=== PATIENT | male | born 1975 | race Asian ===

== ENCOUNTER 2018-07-22 09:12 | Emergency (ER) | payer OTHER ==
[2018-07-22] MEDS ORDERED: IBUPROFEN 400 MG TAB ONE (09:44)
--- NOTE | 2018-07-22 10:12 | EDPHYS ---
Physician Documentation [facility] Name: Rocco Pandey Age: 43 yrs Sex: Male : 1975 Arrival Date: 07/22/2018 Time: 09:15 Bed 16 Private MD: Hiro Montesinos ED Physician Gen Cardona HPI: 07/22 09:34 This 43 yrs old Male presents to ER via Ambulatory with complaints of Wrist Pain. cp 09:34 The patient or guardian reports pain, swelling, tenderness. The complaints affect the cp right wrist diffusely. Context: resulted from an unknown cause. 09:36 Onset: The symptoms/episode began/occurred gradually. Associated signs and symptoms: cp Pertinent negatives: cyanosis distally, fever, numbness distally. Historical: - Allergies: 09:20 No Known Allergies; hj - Home Meds: 09:20 None [Active]; hj - PMHx: 09:20 None; hj - PSHx: 09:20 None; hj - Immunization history:: Adult Immunizations up to date. - Social history:: Smoking status: Patient/guardian denies using tobacco, Patient uses alcohol. - Ebola Screening: : Patient negative for fever greater than or equal to 101.5 degrees Fahrenheit, and additional compatible Ebola Virus Disease symptoms Patient denies exposure to infectious person Patient denies travel to an Ebola-affected area in the 21 days before illness onset. ROS: 09:36 Eyes: Negative for injury, pain, redness, and discharge. cp 09:36 Constitutional: Negative for body aches, chills, fever, poor PO intake. 09:36 Cardiovascular: Negative for chest pain, palpitations. 09:36 Respiratory: Negative for cough, shortness of breath, wheezing. 09:36 Abdomen/GI: Negative for abdominal pain, nausea, vomiting, and diarrhea. 09:36 MS/extremity: Positive for pain, swelling, tenderness, of the right wrist, Negative for injury or acute deformity, decreased range of motion, paresthesias. 09:36 All other systems are negative. Exam: 09:40 Constitutional: The patient appears in no acute distress, alert, awake, well developed, cp well nourished. 09:40 Head/Face: Normocephalic, atraumatic. cp 09:40 Eyes: Periorbital structures: appear normal, Conjunctiva: normal, no exudate, no injection, Lids and lashes: appear normal, bilaterally. 09:40 ENT: External ear(s): are unremarkable, Nose: is normal, Mouth: is normal, Posterior pharynx: Airway: no evidence of obstruction, patent. 09:40 Chest/axilla: Inspection: normal. 09:40 Cardiovascular: Rate: normal. 09:40 Respiratory: the patient does not display signs of respiratory distress, Respirations: normal, no use of accessory muscles, no retractions, no splinting, no tachypnea. 09:40 Musculoskeletal/extremity: Extremities: grossly normal except: noted in the radial side of right wrist: pain, swelling, tenderness, There is no evidence of decreased ROM, Perfusion: the extremity is normally perfused throughout, Sensation intact. 09:40 Skin: cellulitis, is not appreciated, no rash present. Vital Signs: 09:22 BP 103 / 71; Pulse 63; Resp 18; Temp 97.8(TE); Pulse Ox 98% on R/A; Weight 69.4 kg; hj Height 5 ft. 5 in. (165.10 cm); Pain 6/10; 10:29 BP 110 / 75; Pulse 65; Resp 18; Pulse Ox 100% on R/A; hj 09:22 Body Mass Index 25.46 (69.40 kg, 165.10 cm) MDM: 09:21 Patient medically screened. cp 10:00 Differential diagnosis: closed fracture, tendonitis, sprain, gout. cp 10:10 Data reviewed: vital signs, nurses notes, radiologic studies, plain films, and as a cp result, I will discharge patient. 10:10 Test interpretation: by ED physician or midlevel provider: plain radiologic studies. cp 10:10 Counseling: I had a detailed discussion with the patient and/or guardian regarding: the cp historical points, exam findings, and any diagnostic results supporting the discharge/admit diagnosis, radiology results, the need for outpatient follow up, a orthopedic surgeon, to return to the emergency department if symptoms worsen or persist or if there are any questions or concerns that arise at home. 07/22 09:30 Order name: XRAY Wrist RIGHT 3 view; Complete Time: 17:11 cp 07/22 17:11 Interpretation: Report reviewed. cp 07/22 10:05 Order name: Thumb Spica Splint: right wrist; Complete Time: 10:12 cp Administered Medications: 09:36 Not Given (Patient Refused): Ibuprofen 800 mg PO once hj Disposition: 18:13 Co-signature as Attending Physician, Gen Cardona MD Available for consultation at ps1 all times . Disposition: 07/22/18 10:11 Discharged to Home. Impression: Pain in right wrist. - Condition is Stable. - Discharge Instructions: Wrist Pain. - Prescriptions for Naprosyn 500 mg Oral Tablet - take 1 tablet by ORAL route 2 times per day take with food; 20 tablet. - Work release form, Medication Reconciliation Form, Thank You Letter, Antibiotic Education, Prescription Opioid Use form. - Follow up: Bari Baumann MD; When: 1 week; Reason: pain continues. - Problem is new. - Symptoms have improved. Signatures: Dispatcher [employer] EDEffie Egan RN RN iw Eddie Pérez RN RN hj Triston Hearn PA PA Gen Lee MD MD ps1 Corrections: (The following items were deleted from the chart) 10:25 10:11 07/22/2018 10:11 Discharged to Home. Impression: Pain in right wrist. Condition iw is Stable. Forms are Medication Reconciliation Form, Thank You Letter, Antibiotic Education, Prescription Opioid Use. Follow up: Bari Baumann; When: 1 week; Reason: pain continues. Problem is new. Symptoms have improved. cp
--- NOTE | 2018-07-22 10:12 | ER ---
Nurse's Notes [facility] Name: Rocco Pandey Age: 43 yrs Sex: Male : 1975 Arrival Date: 07/22/2018 Time: 09:15 Bed 16 Private MD: Hiro Montesinos Diagnosis: Pain in right wrist Presentation: 07/22 09:18 Presenting complaint: Patient states: my R wrist is hurting and swollen for days, i am hj not sure if i hurt it or not, denies numbness or tingling; denies taking meds [employer];. Transition of care: patient was not received from another setting of care. Onset of symptoms was July 22, 2018. Risk Assessment: Do you want to hurt yourself or someone else? Patient reports no desire to harm self or others. Initial Sepsis Screen: Does the patient meet any 2 criteria? No. Patient's initial sepsis screen is negative. Does the patient have a suspected source of infection? No. Patient's initial sepsis screen is negative. Care prior to arrival: None. 09:18 Method Of Arrival: Ambulatory 09:18 Acuity: RUCHI 4 hj Triage Assessment: 09:21 General: Appears in no apparent distress. uncomfortable, Behavior is calm, cooperative, hj appropriate for age. Pain: Complains of pain in right wrist Pain currently is 6 out of 10 on a pain scale. Historical: - Allergies: 09:20 No Known Allergies; hj - Home Meds: 09:20 None [Active]; hj - PMHx: 09:20 None; hj - PSHx: 09:20 None; hj - Immunization history:: Adult Immunizations up to date. - Social history:: Smoking status: Patient/guardian denies using tobacco, Patient uses alcohol. - Ebola Screening: : Patient negative for fever greater than or equal to 101.5 degrees Fahrenheit, and additional compatible Ebola Virus Disease symptoms Patient denies exposure to infectious person Patient denies travel to an Ebola-affected area in the 21 days before illness onset. Screenin:21 Abuse screen: Denies threats or abuse. Denies injuries from another. Nutritional hj screening: No deficits noted. Tuberculosis screening: No symptoms or risk factors identified. 09:22 Fall Risk None identified. hj Assessment: 09:20 General: Appears in no apparent distress. uncomfortable, Behavior is calm, cooperative, hj appropriate for age. Pain: Complains of pain in R wrist Pain currently is 6 out of 10 on a pain scale. Neuro: Level of Consciousness is awake, alert, obeys commands, Oriented to person, place, time, situation, Appropriate for age. Cardiovascular: Capillary refill < 3 seconds Patient's skin is warm and dry. Respiratory: Airway is patent Respiratory effort is even, unlabored, Respiratory pattern is regular, symmetrical. GI: No signs and/or symptoms were reported involving the gastrointestinal system. : No signs and/or symptoms were reported regarding the genitourinary system. EENT: No signs and/or symptoms were reported regarding the EENT system. Derm: No signs and/or symptoms reported regarding the dermatologic system. Musculoskeletal: Reports pain in Rwrist. Vital Signs: 09:22 BP 103 / 71; Pulse 63; Resp 18; Temp 97.8(TE); Pulse Ox 98% on R/A; Weight 69.4 kg; hj Height 5 ft. 5 in. (165.10 cm); Pain 6/10; 10:29 BP 110 / 75; Pulse 65; Resp 18; Pulse Ox 100% on R/A; hj 09:22 Body Mass Index 25.46 (69.40 kg, 165.10 cm) hj ED Course: 09:15 Patient arrived in ED. mr 09:16 Hiro Montesinos MD is Private Physician. mr 09:18 Eddie Pérez, RN is Primary Nurse. hj 09:20 Triage completed. hj 09:21 Triston Hearn PA is PHCP. cp 09:21 Gen Cardona MD is Attending Physician. cp 09:21 Arm band placed on left wrist. hj 09:22 Patient has correct armband on for positive identification. Placed in gown. Bed in low hj position. Call light in reach. Side rails up X 1. 09:59 XRAY Wrist RIGHT 3 view In Process Unspecified. EDMS 10:10 Bari Baumann MD is Referral Physician. cp 10:29 No provider procedures requiring assistance completed. Patient did not have IV access hj during this emergency room visit. Administered Medications: 09:36 Not Given (Patient Refused): Ibuprofen 800 mg PO once hj Outcome: 10:11 Discharge ordered by . cp 10:25 Patient left the ED. iw 10:29 Discharged to home ambulatory, with family. hj 10:29 Condition: stable 10:29 Discharge instructions given to patient, family, Instructed on discharge instructions, follow up and referral plans. medication usage, Demonstrated understanding of instructions, follow-up care, medications, Prescriptions given X 1. Signatures: Dispatcher [employer] Carol Ambrosio Effie Cadet RN RN iw Eddie Pérez RN RN hj Page, Corey, IRENE OBNILLA cp Corrections: (The following items were deleted from the chart) 09:24 09:22 Pulse 63bpm; Resp 18bpm; Pulse Ox 98% RA; Temp 97.8F Temporal; 69.4 kg; Height 5 hj ft. 5 in.; BMI: 25.4; Pain 6/10; hj
--- NOTE | 2018-07-22 10:29 | RAD REPORT ---
EXAM DESCRIPTION: RAD - Wrist Right 3 View - 07/22/2018 9:58 am CLINICAL HISTORY: PAIN Pain COMPARISON: No comparisons FINDINGS: No fracture or dislocation of the right wrist seen. Soft tissue swelling is present.
== END 2018-07-22 10:25 | disposition home or self-care (01) ==
LOC: ER 09:12
DX: M25.531 Pain in right wrist (principal); M79.9 Soft tissue disorder, unspecified
CPT/HCPCS: 99283

== ENCOUNTER 2021-07-31 17:15 | Inpatient (IN) | payer BC ==
--- OUTSIDE RECORDS SUMMARY | 2021-07-31 17:20 | XMS REPORT | Continuity of Care Document ---
:1975 Author Organization [facility] t Address [address] [place] [address] Care Team Providers Name Role Phone Unavailable Unavailable Unavailable Problems This patient has no known problems. Allergies, Adverse Reactions, Alerts This patient has no known allergies or adverse reactions. Medications Ordered Filled Start Stop Current Ordering Indication Dosage Frequency Signature Comments Components Source Medication Medication Date Date Medication? Clinician (SIG) Name Name Desmond Logan 2018-0 Yes Renzo [address] [facility] 2[facility]21 [facility] - 00:00: Memoria 00 [facility] Ibuprofen Ibuprofen Yes Renzo [address] [facility] with [facility] - or milk as Memoria needed [facility] Procedures This patient has no known procedures. Encounters Start End Encounter Admission Attending Care Care Encounter Source Date/Time Date/Time Type Type Clinicians Facility Department ID 2018-09-24 2018-09-24 Outpatient Raquel [facility] [id number] [facility] 10:26:00 10:26[facility]00 [facility] Clinics 2018-09-11 2018-09-11 Outpatient Raquel [place] [id number] [facility] 08:00:00 08:[facility]:00 [facility] Clinics 2018-08-28 2018-08-28 Outpatient Raquel Garcíat [id number] [facility] 08:00:00 08:00:00 [facility] Results This patient has no known results.
--- NOTE | 2021-07-31 18:59 | RAD REPORT ---
EXAM DESCRIPTION: Ribs Right - 07/31/2021 6:14 pm CLINICAL HISTORY: PAIN, pain persists following blunt force trauma to the ribs 2 days earlier COMPARISON: No comparisonsNo comparisonsNone. FINDINGS: No displaced rib fracture is evident. No non-displaced rib fracture suspected. No aggressive rib lesion. No underlying pneumothorax, effusion, infiltrate or pulmonary contusion. IMPRESSION: Negative right rib series.
[2021-07-31] MEDS ORDERED: KETOROLAC 30 MG/ML INJ ONE (19:54)
[2021-07-31] MEDS ORDERED: NA CHLORIDE 0.9% 1,000 ML ONE (19:54)
[2021-07-31 20:18] LABS: Urine Blood Trace-intact (Negative); Urine Glucose Negative (Negative); Urine Protein Negative (Negative); Urine Specific Gravity >=1.030 (1.005-1.030)
[2021-07-31] MEDS ORDERED: HYDROCODONE/APAP 7.5/325 MG TAB ONE (20:23)
[2021-07-31 20:30] LABS: Absolute Lymphocytes (CBC) 3.3 K/uL (0.7-4.9); Hematocrit 42.8 % (39.6-49.0); Lymphocytes % 30.6 % (15.3-44.8)
[2021-07-31 20:38] LABS: Albumin 3.5 g/dL (3.4-5.0); BUN Blood Urea Nitrogen 15 mg/dL (7-18); Bicarbonate 25 mmol/L (21-32); Glucose Level 90 mg/dL (74-106); Potassium 3.8 mmol/L (3.5-5.1); Sodium Level 136 mmol/L (136-145)
[2021-07-31 20:49] LABS: ALT/SGPT 35 U/L (12-78); AST/SGOT 19 U/L (15-37); Alkaline Phosphatase 74 U/L (45-117); Bilirubin Total 0.8 mg/dL (0.2-1.0); Protein, Total 7.6 g/dL (6.4-8.2)
--- NOTE | 2021-07-31 21:26 | RAD REPORT ---
EXAM DESCRIPTION: CT - Chest For Pe Angio - 07/31/2021 9:14 pm CLINICAL HISTORY: CHEST PAIN COMPARISON: No comparisons TECHNIQUE: Dynamically enhanced 3 mm thick images of the chest were obtained during administration o f approximately 150mL Isovue 370 IV contrast. Coronal and oblique MIP reconstruction images were gene rated and reviewed. Exam utilizes a protocol to evaluate the pulmonary arterial tree. All CT scans are performed using dose optimization technique as appropriate and may include automated exposure control or mA/KV adjustment according to patient size. FINDINGS: No saddle embolus or large central pulmonary emboli seen. There is pulmonary embolism pres ent at the branch point between left lower lobe and left upper lobe lingula branches. Pulmonary embol us continues into segmental branches. Small segmental branch pulmonary embolism present in the superi or aspect of the left upper lobe. A few additional far peripheral subsegmental branch pulmonary embol i are seen scattered in the lung staples. The aorta as imaged shows no acute or suspicious finding. No pericardial thickening or effusion. Patchy alveolar opacification present in the subpleural posterior gutter on the right. Patient does h ave some pulmonary embolic disease in this region but these airspace opacities are not definitive for pulmonary hemorrhage. Atelectasis or infiltrate would be possible. Trace right pleural effusion is p resent. No left pleural effusion or pneumothorax. No mediastinal or hilar suspicious masses. No chest wall masses or abnormal axillary lymphadenopathy. IMPRESSION: Multiple segmental and subsegmental branch pulmonary emboli are present as detailed. Patchy airspace opacities in the posterior right lower lobe are present. There are some pulmonary emb alison in this region but airspace findings are non definitive for pulmonary hemorrhage versus atelectas is or infiltrate.
--- NOTE | 2021-07-31 21:27 | RAD REPORT ---
EXAM DESCRIPTION: CT - Abdomen Pelvis W Contrast - 07/31/2021 9:14 pm CLINICAL HISTORY: ABD PAIN COMPARISON: No comparisons TECHNIQUE: Biphasic, helical CT imaging of the abdomen and pelvis was performed following 100 ml non -ionic IV contrast. No oral contrast administered. All CT scans are performed using dose optimization technique as appropriate and may include automated exposure control or mA/KV adjustment according to patient size. FINDINGS: Lung base findings are detailed on the separate CT chest report. The liver, spleen, and pancreas show no suspicious findings. Gallbladder and biliary tree are also wi thout suspicious finding. Symmetric renal function is seen with no hydronephrosis or suspicious renal mass. No pyelonephritis o r acute parenchymal process. No bladder abnormalities. No adrenal abnormalities. No dilated bowel loops or bowel wall thickening. No free air, free fluid or inflammatory stranding. No hernia, mass or bulky lymphadenopathy. No suspicious bony findings. IMPRESSION: Contrast enhanced CT abdomen and pelvis showing no significant or suspicious finding.
--- NOTE | 2021-07-31 22:24 | EDPHYS ---
Physician Documentation [facility] Name: Rocco Pandey Age: 46 yrs Sex: Male : 1975 Arrival Date: 07/31/2021 Time: 17:19 Bed 7 Private MD: Jose Juan Melissa C ED Physician Triston Keller HPI: 07/31 19:43 This 46 yrs old Male presents to ER via Ambulatory with complaints of Flank Pain. bill 19:43 The patient complains of pain in the right subscapular area, right mid back and right bill low back. The pain does not radiate. Onset: The symptoms/episode began/occurred 2 day(s) ago. Modifying factors: The symptoms are alleviated by remaining still, the symptoms are aggravated by movement, deep breaths. Associated signs and symptoms: The patient has no apparent associated signs or symptoms. Severity of pain: At its worst the pain was mild in the emergency department the pain is unchanged. The patient has not experienced similar symptoms in the past. Historical: - Allergies: 17:40 No Known Allergies; jd3 - Home Meds: 17:40 None [Active]; jd3 - PMHx: 17:40 None; jd3 - PSHx: 17:40 None; jd3 - Immunization history:: Adult Immunizations up to date, Client reports receiving the 2nd dose of the Covid vaccine, Flu vaccine is up to date. - Social history:: Smoking status: Patient denies any tobacco usage or history of. - Family history:: not pertinent. ROS: 19:46 Constitutional: Negative for fever, chills, and weight loss, Eyes: Negative for injury, bill pain, redness, and discharge, ENT: Negative for injury, pain, and discharge, Neck: Negative for injury, pain, and swelling, Cardiovascular: Negative for chest pain, palpitations, and edema, Abdomen/GI: Negative for abdominal pain, nausea, vomiting, diarrhea, and constipation, Back: Negative for injury and pain, : Negative for injury, bleeding, discharge, and swelling, MS/Extremity: Negative for injury and deformity, Skin: Negative for injury, rash, and discoloration, Neuro: Negative for headache, weakness, numbness, tingling, and seizure, Psych: Negative for depression, anxiety, suicide ideation, homicidal ideation, and hallucinations, Allergy/Immunology: Negative for hives, rash, and allergies, Endocrine: Negative for neck swelling, polydipsia, polyuria, polyphagia, and marked weight changes, Hematologic/Lymphatic: Negative for swollen nodes, abnormal bleeding, and unusual bruising. 19:46 Respiratory: Positive for pleurisy, of the right lateral anterior chest and right lateral posterior chest. Exam: 19:43 Constitutional: This is a well developed, well nourished patient who is awake, alert, bill and in no acute distress. Head/Face: Normocephalic, atraumatic. Eyes: Pupils equal round and reactive to light, extra-ocular motions intact. Lids and lashes normal. Conjunctiva and sclera are non-icteric and not injected. Cornea within normal limits. Periorbital areas with no swelling, redness, or edema. ENT: Nares patent. No nasal discharge, no septal abnormalities noted. Tympanic membranes are normal and external auditory canals are clear. Oropharynx with no redness, swelling, or masses, exudates, or evidence of obstruction, uvula midline. Mucous membranes moist. Neck: Trachea midline, no thyromegaly or masses palpated, and no cervical lymphadenopathy. Supple, full range of motion without nuchal rigidity, or vertebral point tenderness. No Meningismus. Cardiovascular: Regular rate and rhythm with a normal S1 and S2. No gallops, murmurs, or rubs. Normal PMI, no JVD. No pulse deficits. Respiratory: Lungs have equal breath sounds bilaterally, clear to auscultation and percussion. No rales, rhonchi or wheezes noted. No increased work of breathing, no retractions or nasal flaring. Abdomen/GI: Soft, non-tender, with normal bowel sounds. No distension or tympany. No guarding or rebound. No evidence of tenderness throughout. Back: No spinal tenderness. No costovertebral tenderness. Full range of motion. Male : Normal genitalia with no discharge or lesions. Skin: Warm, dry with normal turgor. Normal color with no rashes, no lesions, and no evidence of cellulitis. MS/ Extremity: Pulses equal, no cyanosis. Neurovascular intact. Full, normal range of motion. Neuro: Awake and alert, GCS 15, oriented to person, place, time, and situation. Cranial nerves II-XII grossly intact. Motor strength 5/5 in all extremities. Sensory grossly intact. Cerebellar exam normal. Normal gait. Psych: Awake, alert, with orientation to person, place and time. Behavior, mood, and affect are within normal limits. 19:43 Chest/axilla: Inspection: normal, no acute changes, Palpation: is normal, no acute changes, Lymph nodes: lymphadenopathy is not appreciated, supraclavicular nodes, non-palpable. 19:43 Abdomen/GI: Exam negative for acute changes. 08/01 02:32 ECG was reviewed by the Attending Physician. [facility] Vital Signs: 07/31 17:40 BP 105 / 79; Pulse 80; Resp 19 S; Temp 98.5(TE); Pulse Ox 97% on R/A; Weight 68.04 kg jd3 (R); Height 5 ft. 5 in. (165.10 cm) (R); Pain 3/10; 19:26 BP 117 / 98; Pulse 85; Resp 16; Temp 98.4; Pulse Ox 100% on R/A; st1 20:31 BP 124 / 82; Pulse 74; Resp 16; Pulse Ox 98% on R/A; Pain 3/10; st1 17:40 Body Mass Index 24.96 (68.04 kg, 165.10 cm) jd3 [place] Coma Score: 19:26 Eye Response: spontaneous(4). Verbal Response: oriented(5). Motor Response: obeys st1 commands(6). Total: 15. MDM: 19:16 Patient medically screened. [facility] 19:47 Differential diagnosis: pe, laceration liver, ptx. Data reviewed: vital signs, nurses [facility] notes, lab test result(s), radiologic studies, CT scan, plain films. 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 Test interpretation: by ED physician or midlevel provider: plain radiologic studies. Counseling: I had a detailed discussion with the patient and/or guardian regarding: the historical points, exam findings, and any diagnostic results supporting the discharge/admit diagnosis, lab results, radiology results, the need for outpatient follow up, for definitive care, a general surgeon. 07/31 19:43 Order name: CBC with Diff; Complete Time: 23:12 [facility] 07/31 19:43 Order name: Comprehensive Metabolic Panel; Complete Time: 23:12 [facility] 07/31 20:18 Order name: Urine Dipstick-Ancillary; Complete Time: 20:38 [facility] 07/31 21:36 Order name: PT-INR [facility] 07/31 21:36 Order name: COVID-19/FLU A+B/RSV (Document "Date of Onset" if Symptomatic) [facility] 07/31 22:10 Order name: Anti-Thrombin III Activity [facility] 07/31 17:47 Order name: Ribs Right XRAY; Complete Time: 20:38 jd3 07/31 22:10 Order name: Factor V Leiden Mutation [facility] 07/31 22:10 Order name: Homocysteine [facility] 07/31 22:10 Order name: Protein C Activity, Functional [facility] 07/31 22:10 Order name: PROTHROMBIN GENE ANALYSIS (F2) [facility] 07/31 22:11 Order name: Protein S Activity, Functional [facility] 08/01 04:47 Order name: CBC with Automated Diff [facility] 08/01 05:01 Order name: Basic Metabolic Panel [facility] 07/31 19:43 Order name: Urine Dipstick-Ancillary (obtain specimen); Complete Time: 20:45 [facility] 07/31 19:43 Order name: CT Chest For PE Angio; Complete Time: 23:12 [facility] 07/31 19:43 Order name: CT Abd/Pelvis - IV Contrast Only; Complete Time: 23:12 [facility] 07/31 19:52 Order name: INCENTIVE SPIROMETRY [facility] 07/31 21:36 Order name: EKG; Complete Time: 21:37 [facility] 07/31 21:36 Order name: EKG - Nurse/Tech; Complete Time: 02:30 [facility] 07/31 21:36 Order name: US Extremity Venous W Compression Markus [facility] 07/31 22:30 Order name: CONS Physician Consult [facility] EC/25 02:32 Rate is 75 beats/min. Rhythm is regular. QRS [place] is Normal. [place] interval is normal. QRS bill interval is normal. QT interval is normal. No Q waves. T waves are Normal. No ST changes noted. Clinical impression: NSR w/ Non-specific ST/T Changes and No evidence of ischemia. Interpreted by me. Reviewed by me. Administered Medications: 07/31 20:12 Drug: NS 0.9% 1000 ml Route: IV; Rate: 1 bolus; Site: left antecubital; st1 20:12 Drug: Ketorolac 30 mg Route: IVP; Site: left antecubital; st1 20:24 Drug: [place] (HYDROcodone-acetaminophen) (7.5 mg-325 mg) 1 tabs Route: PO; st1 22:30 Drug: Pepcid (famotidine) 20 mg Route: IVP; Site: left antecubital; st1 08/01 01:44 Not Given (documente in [facility] see MAR): Heparin (DVT/PE Drip) 18 units/kg/hr - st1 (HEParin 30744 units, D5W 500 ml) IV at per protocol Per protocol; Max initial rate 1800 units/hr 01:45 Not Given (Documented in [facility],see MAR ): Heparin (DVT/PE- Bolus per protocol) - st1 HEParin 80 units/kg IVP once; Max 8,000 units Disposition Summary: 07/31/21 22:23 Hospitalization Ordered Hospitalization Status: Inpatient Admission bill Provider: Jose Juan Melissa cha [facility] Condition: Fair bill Problem: new bill Symptoms: have improved bill Bed/Room Type: Standard [facility] Room Assignment: 218(08/01/21 03:09) cg Diagnosis - Dyspnea bill - Pleurisy bill - Pulmonary embolism without acute cor pulmonale bill - Pleural effusion, not elsewhere classified bill Discharge Instructions: - Discharge Summary Sheet bill - Contusion bill - Pleurisy bill - How to Use an Incentive Spirometer bill - Contusion, [id number] bill - Pleurisy, [id number] bill Forms: - Medication Reconciliation Form bill - SBAR form [facility] Prescriptions: - Diclofenac Sodium 75 mg Oral tablet,delayed release (DR/EC) - take 1 tablet by ORAL route 2 times per day; 20 tablet; Refills: 0, Product bill Selection Permitted - Tylenol-Codeine #3 300 mg-30 mg Oral - take 2 tablet by ORAL route every 6 hours; 20 tablet; Refills: 0, Product bill Selection Permitted Signatures: Dispatcher [employer] Triston Locke MD MD cha Garcia, Cindy RN RN Huan Keith RN RN jHannah Mireles RN RN st1 Corrections: (The following items were deleted from the chart) 03:09 07/31 22:23 bill cg
--- NOTE | 2021-07-31 22:24 | ER ---
Nurse's Notes [facility] Name: Rocco Pandey Age: 46 yrs Sex: Male : 1975 Arrival Date: 07/31/2021 Time: 17:19 Bed 7 Private MD: Jose Juan Melissa C Diagnosis: Dyspnea;Pleurisy;Pulmonary embolism without acute cor pulmonale;Pleural effusion, not elsewhere classified Presentation: 07/31 17:37 Chief complaint: Spouse and/or significant other states: "He was horse playing with our jd3 son and his knee hit his side on his right side and hit right flank is really hurting causing some pain with breathing. pain that goes from my ribs up to my shoulder form my stomach.". Coronavirus screen: At this time, the client does not indicate any symptoms associated with coronavirus-19. Ebola Screen: No symptoms or risks identified at this time. Initial Sepsis Screen: Does the patient meet any 2 criteria? No. Patient's initial sepsis screen is negative. Does the patient have a suspected source of infection? No. Patient's initial sepsis screen is negative. Risk Assessment: Do you want to hurt yourself or someone else? Patient reports no desire to harm self or others. Note Advil X 2 taken prior to coming to ER. Onset of symptoms was July 31, 2021. 17:37 Method Of Arrival: Ambulatory [facility] 17:37 Acuity: RUCHI 4 jd3 Triage Assessment: 18:54 General: Appears in no apparent distress. uncomfortable, Behavior is calm, cooperative, bp appropriate for age. Pain: Complains of pain in right flank. EENT: No deficits noted. Neuro: No deficits noted. Cardiovascular: No deficits noted. Respiratory: No deficits noted. GI: No signs and/or symptoms were reported involving the gastrointestinal system. : No signs and/or symptoms were reported regarding the genitourinary system. Derm: No deficits noted. Musculoskeletal: No deficits noted. Historical: - Allergies: 17:40 No Known Allergies; jd3 - Home Meds: 17:40 None [Active]; jd3 - PMHx: 17:40 None; jd3 - PSHx: 17:40 None; jd3 - Immunization history:: Adult Immunizations up to date, Client reports receiving the 2nd dose of the Covid vaccine, Flu vaccine is up to date. - Social history:: Smoking status: Patient denies any tobacco usage or history of. - Family history:: not pertinent. Screenin:55 Abuse screen: Denies threats or abuse. Denies injuries from another. Nutritional bp screening: No deficits noted. Tuberculosis screening: No symptoms or risk factors identified. Fall Risk None identified. Assessment: 18:55 General: SEE TRIAGE NOTE. bp 20:29 General: the patient was provided a incentive spirometer and was educated on how to use st1 it. . Vital Signs: 17:40 BP 105 / 79; Pulse 80; Resp 19 S; Temp 98.5(TE); Pulse Ox 97% on R/A; Weight 68.04 kg jd3 (R); Height 5 ft. 5 in. (165.10 cm) (R); Pain 3/10; 19:26 BP 117 / 98; Pulse 85; Resp 16; Temp 98.4; Pulse Ox 100% on R/A; st1 20:31 BP 124 / 82; Pulse 74; Resp 16; Pulse Ox 98% on R/A; Pain 3/10; st1 17:40 Body Mass Index 24.96 (68.04 kg, 165.10 cm) jd3 [place] Coma Score: 19:26 Eye Response: spontaneous(4). Verbal Response: oriented(5). Motor Response: obeys st1 commands(6). Total: 15. ED Course: 17:19 Patient arrived in ED. mr 17:19 Jose Juan Melissa MD is Private Physician. mr 17:39 Triage completed. jd3 17:40 Arm band placed on. jd3 18:14 Ribs Right XRAY In Process Unspecified. EDMS 18:54 Mani Ny, RN is Primary Nurse. bp 18:55 Patient has correct armband on for positive identification. Bed in low position. Call bp light in reach. Side rails up X2. Adult w/ patient. 19:16 Triston Keller MD is Attending Physician. bill 20:12 Comprehensive Metabolic Panel Sent. st1 20:12 CBC with Diff Sent. st1 20:24 INCENTIVE SPIROMETRY Sent. st1 20:29 Inserted saline lock: 20 gauge in left antecubital area, using aseptic technique. st1 Missed attempt(s): 20 gauge in right forearm. Bleeding controlled, band aid applied, catheter tip intact. 21:13 CT Chest For PE Angio In Process Unspecified. EDMS 21:13 CT Abd/Pelvis - IV Contrast Only In Process Unspecified. EDMS 22:22 Jose Juan Melissa MD is Hospitalizing Provider. [facility] 22:23 US Extremity Venous W Compression Markus In Process Unspecified. EDNV 08/01 04:07 No provider procedures requiring assistance completed. st1 04:08 Patient admitted, IV remains in place. st1 Administered Medications: 07/31 20:12 Drug: NS 0.9% 1000 ml Route: IV; Rate: 1 bolus; Site: left antecubital; st1 20:12 Drug: Ketorolac 30 mg Route: IVP; Site: left antecubital; st1 20:24 Drug: [place] (HYDROcodone-acetaminophen) (7.5 mg-325 mg) 1 tabs Route: PO; st1 22:30 Drug: Pepcid (famotidine) 20 mg Route: IVP; Site: left antecubital; st1 08/01 01:44 Not Given (documente in [facility] see MAR): Heparin (DVT/PE Drip) 18 units/kg/hr - st1 (HEParin 09816 units, D5W 500 ml) IV at per protocol Per protocol; Max initial rate 1800 units/hr 01:45 Not Given (Documented in [facility],see MAR ): Heparin (DVT/PE- Bolus per protocol) - st1 HEParin 80 units/kg IVP once; Max 8,000 units Outcome: 07/31 22:23 Decision to Hospitalize by Provider. [facility] 08/01 04:07 Admitted to Med/surg accompanied by nurse, via wheelchair, room 218, with chart, Report st1 called to TIMOTHY Pavon 04:08 Condition: stable st1 04:08 Instructed on the need for admit. 05:07 Patient left the ED. st1 Signatures: Dispatcher [employer] EDMS Triston Keller MD MD cha Rivera, Huan Fan RN RN jd3 Peltier, Brian, RN RN bp Tingle, Shellie, RN RN st1
[2021-07-31] MEDS ORDERED: FAMOTIDINE 20 MG/2 ML VIAL IV ONE (22:29)
[2021-07-31 23:12] LABS: SARS-COV-2 RT PCR NEGATIVE (NEGATIVE)
[2021-07-31 23:45] LABS: Protime INR 1.16
[2021-07-31] MEDS ORDERED: ACETAMINOPHEN 325 MG TABLET PO PRN (23:57)
[2021-07-31] MEDS ORDERED: HEPARIN/D5W 25,000 UNIT/500 ML BAG IV SCH (23:57)
[2021-07-31] MEDS ORDERED: ONDANSETRON 4 MG/2 ML VIAL IV PRN (23:57)
[2021-07-31] MEDS ORDERED: MORPHINE 4 MG/ML SYR IV PRN (23:57)
[2021-08-01 00:04] VITALS: BMI 24.9
[2021-08-01] MEDS ORDERED: HEPARIN 5000 UNIT/ML 1 ML VIAL ONE (00:30)
[2021-08-01] MEDS ORDERED: HEPARIN/D5W 25,000 UNIT/500 ML BAG IV ONE (00:31)
[2021-08-01 04:46] LABS: Absolute Lymphocytes (CBC) 2.1 K/uL (0.7-4.9); Hematocrit 40.1 % (39.6-49.0); Lymphocytes % 21.5 % (15.3-44.8); MPV 7.7 fL (7.6-11.3); RBC Red Blood Cell Count 4.43 M/uL (4.33-5.43)
[2021-08-01 05:00] LABS: BUN Blood Urea Nitrogen 12 mg/dL (7-18); Bicarbonate 25 mmol/L (21-32); Glucose Level 102 mg/dL (74-106); Potassium 3.7 mmol/L (3.5-5.1); Sodium Level 138 mmol/L (136-145)
[2021-08-01] MEDS ORDERED: HYDROMORPHONE HCL 1 MG/ML INJ IV PRN (05:48)
[2021-08-01] MEDS ORDERED: ONDANSETRON 4 MG/2 ML VIAL IV PRN (05:49)
--- NOTE | 2021-08-01 07:08 | RAD REPORT ---
EXAM DESCRIPTION: US - Extrem Venous W Compress Markus - 07/31/2021 10:23 pm CLINICAL HISTORY: PAINboth legs COMPARISON: None. TECHNIQUE: Real-time sonographic evaluation of the bilateral lower extremity common femoral, superfi cial femoral, popliteal and posterior tibial veins was performed. FINDINGS: Normal compressibility, flow augmentation, phasic flow and spontaneous flow are identified in the left and right lower extremity common femoral, superficial femoral, popliteal and posterior t ibial veins. No intraluminal filling defects seen. IMPRESSION: No DVT in either lower extremity.
--- NOTE | 2021-08-01 08:22 | EKG ---
Test Date: 2021-08-01 Test Time: 02:25:01 Diesel Engine I Pipe Fitter: FABRICE MEASUREMENT RESULTS: Intervals: Rate: 75 SD: 150 QRSD: 98 QT: 386 QTc: 431 [place]: P: 48 SD: 150 QRS: 43 T: -1 INTERPRETIVE STATEMENTS: Normal sinus rhythm Inferior infarct, age undetermined Cannot rule out Anterior infarct, age undetermined Abnormal ECG No previous ECG available for comparison Electronically Signed On 08-01-21 08:22:16 MARKETING OPERATIONS ASSOCIATE by Julian Quiles
[2021-08-01] MEDS: ENOXAPARIN 80 MG/0.8 ML SQ SCH ×2 (08:38→20:19)
--- NOTE | 2021-08-01 08:47 | P.CNS ---
Date of Consult: 08/01/21 Reason for Consult: Pulmonary embolism right-sided chest pain Chief Complaint: Right-sided chest pain History of Present Illness: Patient is 46 years of age apparently was playing with his son developed sudden onset of right-sided chest pain admitted to the hospital and was found to have bilateral pulmonary emboli still complaining of significant right-sided chest pain no prior medical history Allergies No Known Allergies Allergy (Unverified 07/31/21 22:06) Home Medications: NK [No Home Meds] 08/01/21 - Past Medical/Surgical History Past Surgical History: Patient denies surgical history Review of Systems 10-point ROS is otherwise unremarkable Physical Examination Temp Pulse Resp BP Pulse Ox 99.4 F 92 H 20 154/74 H 96 08/01/21 04:00 08/01/21 04:00 08/01/21 04:00 08/01/21 04:00 08/01/21 04:00 General: Alert, Oriented x3, Moderate distress Respiratory: Diminished Cardiovascular: No edema, Normal S1 S2 Gastrointestinal: Normal bowel sounds, Soft and benign Laboratory Data (last 24 hrs) 07/31/21 20:10: Sodium 136, Potassium 3.8, BUN 15, Creatinine 0.89, Glucose 90, Total Bilirubin 0.8, AST 19, ALT 35, Alkaline Phosphatase 74 07/31/21 20:10: WBC 10.80, Hgb 14.5, Hct 42.8, Plt Count 163 - Problems (1) Pulmonary embolism Current Visit: Yes Status: Acute Plan: Patient is 46 years of age admitted with right-sided chest pain after playing with his son is requiring a lot of morphine and him over to Vicodin he has bilateral subsegmental s emboli/dynamically stable saturation blood pressure all stable evidence of DVT change him over to p.o. Lovenox add some hydrocodone possible discharge tomorrow on Eliquis or Xarelto duration 3 to 6 months possible indefinite labs all reviewed including CAT scan Qualifiers: Acute cor pulmonale presence: with acute cor pulmonale
[2021-08-01] MEDS: MORPHINE 4 MG/ML SYR IV PRN (08:49)
[2021-08-01] MEDS ORDERED: FAMOTIDINE 20 MG/2 ML VIAL IV SCH (09:00)
[2021-08-01] MEDS ORDERED: ASPIRIN EC 81 MG TAB PO SCH (09:00)
[2021-08-01] MEDS: HYDROCODONE/APAP 5/325 MG TAB PO PRN ×3 (12:46→23:26)
--- NOTE | 2021-08-01 21:12 | HP ---
Date of Admission: 07/31/2021 Chief Complaint: Chest pain. History Of Present Illness: This is a 46-year-old very pleasant, healthy male patient who was fishin adam about 2 weeks ago or so and at that time he developed pain in his right calf area. There was no le g swelling. The pain improved over a period of time and now what he describes as some soreness in hi s right calf region, but no severe pain like what he had when it first started. No rash. Past weeke nd on Saturday, he was wrestling with his son and next day, which is on Saturday, he started to have ri ght-sided chest pain. This right-sided chest pain is pleuritic in nature, worst when he takes a deep breath. Denies any hemoptysis. No fever. No chills. No cough, congestion. Yesterday, his pain g ot so intense that he also felt like he was having low shortness of breath associated with the pain a nd he came into emergency room after he was evaluated. Further workup showed that the patient had mu ltiple pulmonary emboli and he was admitted to the hospital under my service. He was started on hepa rin drip. When I saw him this morning, he was sitting at bedside, not in any distress. Allergies: NO KNOWN ALLERGIES. Review of Systems: Respiratory: As mentioned above. Musculoskeletal: As mentioned above. All other systems reviewed and negative. Past Medical History: Significant for mixed hyperlipidemia and acne. Past Surgical History: Negative. Family History: Father has diabetes. Mother hypertension and congestive heart failure. Social History: Negative for smoking. Negative for alcohol use. 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 Immunization History: Patient had his COVID-19 vaccine, which was Arias and Arias on October 13. Physical Examination: Vital Signs: Temperature 99.4, pulse 92, respiratory rate 20, blood pressure 154/74, oxygen saturati on 96%, height 5 feet 5 inches, weight 149 pounds. General: Awake, alert, oriented, not in distress. HEENT: Head atraumatic, normocephalic. Conjunctivae nonerythematous. Sclerae white. Mouth, no thr ush or edema noted. Ears/Nose, no mass, lesion, discharge noted. Neck: Supple. No JVD, lymph nodes, bruit, thyromegaly noted. Lungs: Bilateral good equal air entry, presence of rales noted in right lung basal region with dimin ished air entry in the right lung base. The patient not in any respiratory distress. Heart: Normal heart sounds, no murmur or gallop. Abdomen: Soft, bowel sounds normal. No guarding, rigidity, tenderness, mass, hepatosplenomegaly, dis tention, or bruit noted. Extremities: No leg edema. No calf tenderness. Skin: No rash, ulcer, cellulitis. Lymphatics: No lymph node enlargement in neck, supraclavicular, infraclavicular region. Neuro: No focal neurological deficit. Chest: Unremarkable. External Genitalia: Deferred. Rectal: Deferred. Laboratory Data: Yesterday, white count 10.8, hemoglobin 14.5, platelets 163. Today, white count 9. 9, hemoglobin 13.3, platelets 161. Yesterday, sodium 136, potassium 3.8, chloride 103, bicarb 25, BU N 15, creatinine 0.89, glucose 90. Liver function tests unremarkable. This morning, sodium 138, pot assium 3.7, chloride 107, bicarb 25, BUN 12, creatinine 0.87, glucose 102. Chest x-ray, unremarkable . CAT scan of the chest per PE protocol shows evidence of multiple pulmonary emboli on the left side and presence of pulmonary embolism in the right lower lobe region with either pulmonary hemorrhage o r area of atelectasis in the right lower lobe region. Impression: 1.Pulmonary embolism. 2.Pleurisy. 3.Mixed hyperlipidemia. Plan: We will admit patient to hospital for further evaluation and management of this problem. The patient is appropriate for inpatient and is expected to spend 2 midnights in hospital. We will mona nue heparin drip per protocol. Consult Pulmonary physician, Dr. Man and I did call and talk to him and discussed details with him. We will get a venous Doppler echo with Doppler and when ER conta cted me yesterday, hypercoagulable workup was ordered. We will follow up on those results. The claude ent was advised to follow up with me next week at office and he was instructed not to return to work until he sees me at office. Morphine will be given for pain control. This morning, nurse contacted me, informed me that morphine was not helping and she was instructed to stop morphine and start Dilau did. By the time I saw the patient, he informed me that his pain was much better with morphine, so saleem lamar decided not to start Dilaudid and continue morphine as per order. I will see him tomorrow for deirdre chang. ELISE/DERIK Voice ID: [id number]
[2021-08-02] MEDS: HYDROCODONE/APAP 5/325 MG TAB PO PRN ×4 (04:32→20:22)
[2021-08-02] MEDS: MORPHINE 4 MG/ML SYR IV PRN (06:13)
[2021-08-02] MEDS ORDERED: METHYLPREDNISOLONE 40 MG INJ IV ONE (07:30)
[2021-08-02] MEDS: ENOXAPARIN 80 MG/0.8 ML SQ SCH (08:41)
--- NOTE | 2021-08-02 08:53 | ECHO ---
HEIGHT: 5 ft 5 in WEIGHT: 149 lb 9.6 oz DATE OF STUDY: 08/01/[address]: Triston Keller MD 2-DIMENSIONAL: YES M.MODE: YES DOPPLER: YES COLOR FLOW: YES TDS: PORTABLE: DEFINITY: BUBBLE STUDY: DIAGNOSIS: PULMONARY EMBOLISMS CARDIAC HISTORY: CATHERIZATION: NO SURGERY: NO PROSTHETIC VALVE: NO PACEMAKER: NO MEASUREMENTS (cm) DIASTOLIC (NORMALS) SYSTOLIC (NORMALS) IVSd 0.8 (0.6-1.2) LA Diam 1.8 (1.9-4.0) LVEF 70% LVIDd 4.4 (3.5-5.7) LVIDs 2.6 (2.0-3.5) %FS 39% LVPWd 0.9 (0.6-1.2) Ao Diam 2.8 (2.0-3.7) 2 DIMENSIONAL ASSESSMENT: RIGHT ATRIUM: NORMAL LEFT ATRIUM: NORMAL RIGHT VENTRICLE: NORMAL LEFT VENTRICLE: NORMAL TRICUSPID VALVE: NORMAL MITRAL VALVE: NORMAL PULMONIC VALVE: NORMAL AORTIC VALVE: NORMAL PERICARDIAL EFFUSION: NONE AORTIC ROOT: NORMAL LEFT VENTRICULAR WALL MOTION: NORMAL DOPPLER/COLOR FLOW: MILD TRICUSPID REGURGITATION. COMMENTS: MILD TRICUSPID REGURGITATION. NORMAL RIGHT VENTRICULAR SIZE AND FUNCTION. NO THOMBUS. TECHNOLOGIST: BENITA BORDEN
[2021-08-02] MEDS: BACLOFEN 10 MG TAB PO SCH ×3 (11:12→20:22)
--- NOTE | 2021-08-02 11:48 | RAD REPORT ---
EXAM DESCRIPTION: RAD - Chest Pa And Lat (2 Views) - 08/02/2021 11:05 am CLINICAL HISTORY: Chest pain, known pulmonary embolism COMPARISON: PE study 07/31/2021, rib film 07/31/2021 TECHNIQUE: Frontal and lateral views of the chest were obtained. FINDINGS: The lungs are underinflated. Lung base atelectasis changes are present. No air space conso lidations seen that would indicate a clearly defined area of pulmonary hemorrhage. No failure or volu me overload. Heart size is normal and central vasculature is within normal limits. No pleural effusion or pneu mothorax seen. No acute bony finding noted. No aortic abnormality. IMPRESSION: Bilateral lung base atelectasis. No acute infiltrate confirmed and no convincing evidence for PE related pulmonary hemorrhage.
[2021-08-02] MEDS: METHYLPREDNISOLONE 40 MG INJ IV SCH (20:21)
[2021-08-02] MEDS: APIXABAN 5 MG TABLET PO SCH (20:22)
[2021-08-03] MEDS: HYDROCODONE/APAP 5/325 MG TAB PO PRN ×2 (00:22→04:41)
--- NOTE | 2021-08-03 03:06 | PN ---
Date of Progress Note: 08/02/2021 Subjective: Patient was seen this morning for followup. When I saw him, he was sitting at the [facility], was having significant pain, which was pleuritic pain in the right anterior chest wall area and h e was breathing rapidly and shallow breathing. His was present with him at bedside. He had rec eived morphine about 30-40 minutes before my arrival, but was still having significant pain. Objective: Vital Signs: Reviewed. HEENT: Unremarkable. Lungs: Clear to auscultation except presence of rales in right lung base with diminished air entry, right lung base. Heart: Heart sounds normal. Abdomen: Soft, bowel sounds normal. No guarding, rigidity, tenderness, or distention. Extremities: No leg edema. Laboratory Data: His chest x-ray done today shows bilateral lung base atelectasis, no acute infiltra te and echocardiogram shows normal ejection fraction 70%, mild tricuspid regurgitation. Impression: 1.Pulmonary embolism. 2.Acute pleurisy. 3.Mixed hyperlipidemia. Plan: We will go ahead and continue current pain medication, which is morphine and hydrocodone and w ill continue anticoagulation therapy. I have started him on IV steroid, which is Solu-Medrol and I w ill see him tomorrow morning for followup. Depending on his pain control, we will decide if we can discharge him to go home tomorrow or not. Details and plan of treatment discus sed with him and his . ELISE/MODL Voice ID: [id number] Report ID: [id number]
[2021-08-03 04:02] VITALS: BP 111/56; TEMP 97
[2021-08-03 04:35] LABS: Absolute Lymphocytes (CBC) 1.1 K/uL (0.7-4.9); Lymphocytes % 8.9 % (15.3-44.8); MPV 8.1 fL (7.6-11.3); RBC Red Blood Cell Count 4.39 M/uL (4.33-5.43)
[2021-08-03 04:49] LABS: Potassium 4.4 mmol/L (3.5-5.1)
[2021-08-03 05:28] LABS: Blood Morphology Comment NOT SEEN (NOT SEEN); Platelet Estimate ADEQ
[2021-08-03] MEDS: METHYLPREDNISOLONE 40 MG INJ IV SCH (08:59)
[2021-08-03] MEDS: APIXABAN 5 MG TABLET PO SCH (08:59)
[2021-08-03 09:12] VITALS: O2SAT 97
== END 2021-08-03 09:27 | disposition home or self-care (01) | DRG 175 ==
LOC: ER 17:15 → ERHOLD 23:00 → 2ND 08-01 03:14
PROVIDERS: ADMIT Internal Medicine; ATTEND Internal Medicine
DX: I26.09 Other pulmonary embolism with acute cor pulmonale (principal); R09.1 Pleurisy; E78.2 Mixed hyperlipidemia; I07.1 Rheumatic tricuspid insufficiency; Z20.822 Contact with and (suspected) exposure to COVID-19
CPT/HCPCS: 0241U; 36415; 71046; 71275; 74177; 80048; 80053; 81003; 81240; 81241; 83090; 85025; 85300; 85303; 85306; 85610; 85730; 93005; 93306; 93970; 96374; 96375; 99285; J1170; J1644; J2405; J2920; J7030; Q9967